=== PATIENT | female | born 1985 | race Caucasian/White ===

== ENCOUNTER 2021-01-12 17:28 | Emergency (ER) | payer OTHER ==
[~2021-01-12] VITALS: Ht 157.5 cm; Wt 47.2 kg
--- NOTE | 2021-01-12 18:00 | NUR ---
NAUSEA/VOMITING, FEELING "SICK" WIDRAWAL FRM ALCOHOL. LAST DRINK 3 HOURS AGO. REQUESTING ATIVAN AND NAUSEA MEDS. ON ROOM AIR, BREATHING EVENLY AND UNLABORED. CONNECTED TO THE MONITOR AND PULSE OX. KEPT COMFORTABLE, WILL CONTINUE TO MONITOR ACCORDINGLY.
[2021-01-12] MEDS ORDERED: LORAZEPAM INJ 2 MG/ML VIAL ONE (18:26)
[2021-01-12] MEDS ORDERED: ONDANSETRON HCL/PF 4 MG/2 ML VIAL ONE (18:26)
[2021-01-12] MEDS ORDERED: THIAMINE HCL 100 MG TABLET ONE (18:27)
[2021-01-12] MEDS ORDERED: FOLIC ACID 1 MG TABLET ONE (18:27)
[2021-01-12 18:28] LABS: BASOPHILS # (AUTO) 0.1 K/uL (0.0-0.2); BASOPHILS % (AUTO) 0.8 % (0.0-2.0); EOSINOPHILS % (AUTO) 0.1 % (0.0-6.0); HEMATOCRIT 41 % (33-45); HEMOGLOBIN 13.9 g/dL (11.5-14.8); LYMPHOCYTES # (AUTO) 1.9 K/uL (0.8-4.8); LYMPHOCYTES % (AUTO) 22.2 % (20.0-44.0); MEAN CORPUSCULAR HGB CONC 34 g/dl (31.0-36.0); MEAN CORPUSCULAR VOLUME 90 fL (82-100); MONOCYTES # (AUTO) 0.5 K/uL (0.1-1.30); MONOCYTES % (AUTO) 5.6 % (2.0-12.0); NEUTROPHILS # (AUTO) 6.1 K/uL (1.8-8.9); NEUTROPHILS % (AUTO) 71.3 % (43.0-81.0); PLATELET COUNT (AUTO) 232 K/uL (150-450); RED BLOOD CELL COUNT(AUTO) 4.51 MIL/uL (4.0-5.2); WHITE BLOOD COUNT (AUTO) 8.5 K/uL (4.3-11.0)
[2021-01-12] MEDS ORDERED: ONDANSETRON HCL/PF 4 MG/2 ML VIAL IV ONE (18:30)
[2021-01-12] MEDS ORDERED: THIAMINE HCL 100 MG TABLET PO ONE (18:30)
[2021-01-12] MEDS ORDERED: LORAZEPAM INJ 2 MG/ML VIAL IV ONE (18:30)
[2021-01-12] MEDS ORDERED: FOLIC ACID 1 MG TABLET PO ONE (18:30)
[2021-01-12] MEDS ORDERED: IV NS 0.9% 1,000 ML BAG IV ONE ×2 (18:30→19:30)
[2021-01-12 18:38] LABS: CREATININE 0.9 mg/dL (0.6-1.3); POTASSIUM 4.5 mmol/L (3.5-5.1)
[2021-01-12 18:38] LABS: BILIRUBIN,URINE Negative (NEGATIVE); COLOR,URINE YELLOW (YELLOW); LEUKOCYTE ESTERASE ,URINE Negative (NEGATIVE); NITRITE, URINE Positive (NEGATIVE); PH,URINE 7.5 (5.0-8.0); PROTEIN,URINE 100 mg/dl (NEGATIVE); UGLUCOSE Negative (NEGATIVE); UROBILINOGEN,URINE 0.2 EU/dL (0.2)
[2021-01-12 18:45] LABS: BILIRUBIN,DIRECT 0.1 mg/dL (0.0-0.2); BILIRUBIN,TOTAL 0.3 mg/dL (0.2-1.0); TOTAL PROTEIN, SERUM 8.1 g/dL (6.4-8.2)
[2021-01-12 18:59] LABS: BACTERIA,URINE 1+ /HPF (None Seen); SQUAMOUS EPITHELIAL CELL,UR Many /HPF (None Seen); YEAST,URINE Rare /HPF (None Seen)
[2021-01-12] MEDS ORDERED: CEFTRIAXONE 1GM BAG (ER ONLY) 1 GM/50 ML PIGGYBACK IV ONE (19:00)
[2021-01-12] MEDS ORDERED: CEFTRIAXONE 1GM BAG (ER ONLY) 50 ML IV ONE (19:03)
[2021-01-12 19:23] LABS: MAGNESIUM 1.8 mg/dL (1.8-2.4)
[2021-01-12] MEDS ORDERED: CEPH500C2 PO (23:09)
[2021-01-12] MEDS ORDERED: ONDA4TAB11 PO (23:09)
--- NOTE | 2021-01-13 01:04 | NUR ---
PT IS AWAKE, ALERT AND RESPONSIVE, BREATHING EVENLY. NAD NOTED. AMBULATORY TO THE BATHROOM W. STEADY GAITS. REPORTED FEELING WELL AND WILLING TO LEAVE THE HOSPITAL PO CHALLENGE TOLERATED WELL. NO N/V. NO S/S OF ASPIRATION. MD AWARE. CLEAR AND STABLE FOR D/C.
[2021-01-13] MEDS ORDERED: LORA-259 PO (01:40)
--- NOTE | 2021-01-13 01:48 | NUR ---
pt is awake, alert oriented. pt ambulates on steady gait. verbalized that she if better and read to go home. pt is going home via uber.
[2021-01-13 01:50] VITALS: BP 134/87
--- NOTE | 2021-01-13 01:51 | NUR ---
Patient discharged to home in stable condition. Written and verbal after care instructions given. Patient verbalizes understanding of instruction.IV removed. Catheter intact and site benign. Pressure and 4x4 applied to site. No bleeding noted. Pt ambulatory with a steady gait
== END 2021-01-13 01:51 | disposition home or self-care (01) ==
LOC: ER 17:34
DX: F10.129 Alcohol abuse with intoxication, unspecified (principal); N39.0 Urinary tract infection, site not specified; R11.2 Nausea with vomiting, unspecified; R00.0 Tachycardia, unspecified; Y90.8 Blood alcohol level of 240 mg/100 ml or more
CPT/HCPCS: 36415; 80048; 80076; 80307; 80320; 81001; 83690; 83735; 84703; 85025; 87086; 93005; 96361; 96365; 96375; 99284; J0696; J2060; J2405; J7030 ×2; G0480

== ENCOUNTER 2021-03-18 09:10 | Emergency (ER) | payer OTHER ==
[~2021-03-18] VITALS: Ht 157.5 cm; Wt 46.3 kg
[~2021-03-18 09:10] MED LIST: CEPH500C2 PO; LORA-259 PO; ONDA4TAB11 PO
[2021-03-18 09:58] VITALS: BP 125/96
[2021-03-18] MEDS ORDERED: HYDR25SU33 RC (10:17)
== END 2021-03-18 10:22 | disposition home or self-care (01) ==
LOC: ER 09:30
DX: K64.4 Residual hemorrhoidal skin tags (principal); Z79.899 Other long term (current) drug therapy